=== PATIENT | female | born 1975 | race Caucasian/White ===

== ENCOUNTER 2019-11-03 09:45 | Inpatient (IN) | payer OTHER ==
[~2019-11-03] VITALS: Ht 152.4 cm; Wt 63.5 kg
[2019-11-03] MEDS ORDERED: FIORICET (11:26)
[2019-11-09] MEDS ORDERED: BUTALBIT-ACETA1 EACH (14:40)
== END 2019-11-12 14:09 | disposition home or self-care (01) | DRG 742 ==
LOC: SURH 11-09 07:00 → O/R 11-09 08:57 → OB/GYN 11-09 08:57 → SURH 11-09 09:45 → O/R 11-09 09:45 → OB/GYN 11-09 18:19
PROVIDERS: ADMIT Obstetrics & Gynecology
PROC: 0UT70ZZ Resection of Bilateral Fallopian Tubes, Open Approach (ICD-10-PCS; 2019-11-09)
PROC: 0UT90ZZ Resection of Uterus, Open Approach (ICD-10-PCS; principal; 2019-11-09 07:00)
DX: D25.1 Intramural leiomyoma of uterus (principal); D62 Acute posthemorrhagic anemia; N72 Inflammatory disease of cervix uteri; N93.8 Other specified abnormal uterine and vaginal bleeding